=== PATIENT | female | born 1980 | race African-American/Black ===

== ENCOUNTER 2021-10-08 14:59 | Inpatient (IN) | payer BC, MEDICAID ==
[2021-10-08] MEDS ORDERED: Nitroglycerin 2% Ointment 1 INCH/1 GM Packet ONE (15:29)
[2021-10-08 15:54] LABS: #Basophils 0.1 thou/uL (0.0-0.2); #Lymphocytes 0.9 thou/uL (1.20-3.40); #Monocytes 0.2 thou/uL (0.11-0.59); #Neutrophils 7.4 thou/uL (1.40-6.50); %Basophils 0.8 % (0.0-1.0); %Eosinophils 0.2 % (0.0-10.0); %Lymphocytes 10.2 % (21.0-51.0); %Monocytes 2.2 % (0.0-10.0); %Neutrophils 86.6 % (42.0-75.0); Hemoglobin 15.1 g/dL (12.0-16.0); Mean Corpuscular Hemoglobin 28.3 pg (27.0-31.0); Mean Corpuscular Volume 88.3 fL (78.0-98.0); Red Blood Cell (RBC) Count 5.35 mill/uL (4.20-5.40); White Blood Cell (WBC) Count 8.6 thou/uL (4.8-10.8)
[2021-10-08 16:17] LABS: Anisocytosis SLIGHT = 6-15 cells (100X) (0-5/hpf); MDiff Complete? YES; Mean Platelet Volume 8.3 fL (7.4-10.4); Platelet Count 248 thou/uL (130-400); Platelet Morphology Comment Appears Adequate; Polychromasia SLIGHT = 2-3 cells (100X) (0-2/hpf)
[2021-10-08] MEDS ORDERED: Aspirin Chewable 81 MG TAB ONE (16:23)
[2021-10-08] MEDS ORDERED: niCARdipine 25 MG/10 ML VIAL ONE (16:54)
[2021-10-08] MEDS ORDERED: Ondansetron ODT 4 MG TAB PO PRN (17:21)
[2021-10-08] MEDS ORDERED: Ondansetron PF 4 MG/2 ML Vial IVP PRN (17:21)
[2021-10-08] MEDS ORDERED: Electrolyte Replacement Protocol 1 EACH IVPB ONE (17:27)
[2021-10-08 17:30] LABS: ALT (SGPT) 20 U/L (8-55); AST (SGOT) 38 U/L (5-34); Albumin 4.9 g/dL (3.5-5.0); Alkaline Phosphatase 52 U/L (40-110); Anion Gap 15 mmol/L (10-20); BUN (Urea Nitrogen) 12 mg/dL (7.0-18.7); Bilirubin, Total 0.7 mg/dL (0.2-1.2); Calc. Creatinine Clearance 0 mL/min (70-130); Calcium 10.1 mg/dL (7.8-10.44); Carbon Dioxide 23 mmol/L (22-29); Chloride 103 mmol/L (98-107); Globulin 4.6 g/dL (2.4-3.5); Glucose 89 mg/dL (70-105); Potassium 3.9 mmol/L (3.5-5.1); Protein, Total 9.5 g/dL (6.0-8.3); Sodium 137 mmol/L (136-145)
[2021-10-08] MEDS ORDERED: niCARdipine 25 MG in Sodium Chloride 0.9% 250 ML 250 ML IVPB SCH (17:30)
[2021-10-08] MEDS ORDERED: Electrolyte Replacement Protocol FS PRN (18:15)
[2021-10-08 18:38] LABS: BHCG - Serum Negative (NEGATIVE); Pregs Control Background? CLEAR/WHITE (CLR/WHITE); Pregs Control Bar Appear? YES (CONTROL BAR)
[2021-10-08 18:47] LABS: Troponin I 0.013 ng/mL (< 0.028)
[2021-10-08] MEDS: Atorvastatin Calcium 40 MG TAB PO SCH (20:47)
[2021-10-08] MEDS: Acetaminophen 325 MG TAB PO PRN (20:47)
[2021-10-09] MEDS: Acetaminophen 325 MG TAB PO PRN ×2 (01:10→18:41)
[2021-10-09 03:50] LABS: #Basophils 0.1 thou/uL (0.0-0.2); #Lymphocytes 0.9 thou/uL (1.20-3.40); #Monocytes 0.8 thou/uL (0.11-0.59); #Neutrophils 5.3 thou/uL (1.40-6.50); %Basophils 1.1 % (0.0-1.0); %Eosinophils 0.1 % (0.0-10.0); %Lymphocytes 12.2 % (21.0-51.0); %Monocytes 10.9 % (0.0-10.0); %Neutrophils 75.6 % (42.0-75.0); Hemoglobin 13.7 g/dL (12.0-16.0); Mean Corpuscular HGB CONC 32.7 g/dL (32.0-36.0); Mean Corpuscular Hemoglobin 28.5 pg (27.0-31.0); Mean Corpuscular Volume 87.2 fL (78.0-98.0); Mean Platelet Volume 8.3 fL (7.4-10.4); Platelet Count 225 thou/uL (130-400); RBC Distribution Width 15.7 % (11.5-14.5); Red Blood Cell (RBC) Count 4.79 mill/uL (4.20-5.40)
[2021-10-09 04:08] LABS: ALT (SGPT) 17 U/L (8-55); AST (SGOT) 16 U/L (5-34); Albumin 4.2 g/dL (3.5-5.0); Alkaline Phosphatase 51 U/L (40-110); Anion Gap 13 mmol/L (10-20); BUN (Urea Nitrogen) 16 mg/dL (7.0-18.7); Bilirubin, Total 0.6 mg/dL (0.2-1.2); Calc. Creatinine Clearance 89 mL/min (70-130); Carbon Dioxide 22 mmol/L (22-29); Chloride 105 mmol/L (98-107); Globulin 3.6 g/dL (2.4-3.5); Glucose 91 mg/dL (70-105); Potassium 3.5 mmol/L (3.5-5.1); Protein, Total 7.8 g/dL (6.0-8.3); Sodium 136 mmol/L (136-145)
[2021-10-09] MEDS ORDERED: Potassium Chloride 20 MEQ TAB PO SCH (06:30)
[2021-10-09] MEDS: Aspirin 81 mg Enteric Coated Tablet PO SCH (08:00)
[2021-10-09] MEDS ORDERED: Acetaminophen 500 MG TAB PO SCH (08:45)
[2021-10-09] MEDS ORDERED: Carvedilol 6.25 MG TAB PO SCH ×2 (09:00→10:45)
[2021-10-09] MEDS ORDERED: hydrALAZINE 10 MG TAB PO SCH ×2 (09:00→10:45)
[2021-10-09] MEDS: Amlodipine 10 MG TAB PO SCH (09:13)
[2021-10-09 09:25] VITALS: BMI 28.7
[2021-10-09] MEDS ORDERED: niCARdipine 25 MG in Sodium Chloride 0.9% 250 ML 250 ML IVPB SCH (11:30)
[2021-10-09] MEDS: Carvedilol 25 MG TAB PO SCH (16:39)
[2021-10-09] MEDS: hydrALAZINE 25 MG TAB PO SCH (20:22)
[2021-10-09] MEDS: Atorvastatin Calcium 40 MG TAB PO SCH (20:22)
[2021-10-10 04:08] LABS: ALT (SGPT) 17 U/L (8-55); AST (SGOT) 17 U/L (5-34); Albumin 3.9 g/dL (3.5-5.0); Alkaline Phosphatase 47 U/L (40-110); Anion Gap 12 mmol/L (10-20); BUN (Urea Nitrogen) 19 mg/dL (7.0-18.7); Bilirubin, Total 0.4 mg/dL (0.2-1.2); Calc. Creatinine Clearance 87 mL/min (70-130); Calcium 9.5 mg/dL (7.8-10.44); Carbon Dioxide 20 mmol/L (22-29); Chloride 105 mmol/L (98-107); Globulin 3.4 g/dL (2.4-3.5); Glucose 88 mg/dL (70-105); Protein, Total 7.3 g/dL (6.0-8.3); Sodium 133 mmol/L (136-145)
[2021-10-10 05:04] LABS: Band 9 % (5-11); Hemoglobin 14.5 g/dL (12.0-16.0); Lymphocytes 33 % (21-51); MDiff Complete? YES; Mean Corpuscular HGB CONC 32.2 g/dL (32.0-36.0); Mean Corpuscular Hemoglobin 28.3 pg (27.0-31.0); Mean Corpuscular Volume 87.9 fL (78.0-98.0); Mean Platelet Volume 8.8 fL (7.4-10.4); Monocytes 12 % (0-10); Neutrophil 46 % (42-75); Platelet Count 200 thou/uL (130-400); RBC Distribution Width 15.8 % (11.5-14.5); Red Blood Cell (RBC) Count 5.12 mill/uL (4.20-5.40); White Blood Cell (WBC) Count 5.2 thou/uL (4.8-10.8)
[2021-10-10] MEDS: hydrALAZINE 25 MG TAB PO SCH ×3 (08:08→21:27)
[2021-10-10] MEDS: Carvedilol 25 MG TAB PO SCH ×2 (08:08→16:19)
[2021-10-10] MEDS: hydrALAZINE 20 MG/ML VIAL SLOW IVP PRN ×2 (08:09→14:33)
[2021-10-10] MEDS: Amlodipine 10 MG TAB PO SCH (08:09)
[2021-10-10] MEDS: Aspirin 81 mg Enteric Coated Tablet PO SCH (08:09)
[2021-10-10] MEDS ORDERED: hydrALAZINE 25 MG TAB PO SCH (11:00)
[2021-10-10] MEDS: Acetaminophen 325 MG TAB PO PRN (18:01)
[2021-10-10] MEDS: Atorvastatin Calcium 40 MG TAB PO SCH (21:27)
[2021-10-11] MEDS ORDERED: hydrALAZINE 25 MG TAB PO SCH (02:52)
[2021-10-11 03:59] LABS: ALT (SGPT) 19 U/L (8-55); AST (SGOT) 21 U/L (5-34); Albumin 3.8 g/dL (3.5-5.0); Alkaline Phosphatase 45 U/L (40-110); Anion Gap 14 mmol/L (10-20); BUN (Urea Nitrogen) 19 mg/dL (7.0-18.7); Bilirubin, Total 0.3 mg/dL (0.2-1.2); Calc. Creatinine Clearance 92 mL/min (70-130); Calcium 9.6 mg/dL (7.8-10.44); Carbon Dioxide 19 mmol/L (22-29); Chloride 104 mmol/L (98-107); Globulin 3.5 g/dL (2.4-3.5); Glucose 85 mg/dL (70-105); Potassium 3.7 mmol/L (3.5-5.1); Protein, Total 7.3 g/dL (6.0-8.3); Sodium 133 mmol/L (136-145)
[2021-10-11] MEDS: hydrALAZINE 20 MG/ML VIAL SLOW IVP PRN (06:30)
[2021-10-11] MEDS: Aspirin 81 mg Enteric Coated Tablet PO SCH (08:34)
[2021-10-11] MEDS: hydrALAZINE 25 MG TAB PO SCH ×3 (08:34→20:22)
[2021-10-11] MEDS: Carvedilol 25 MG TAB PO SCH ×2 (08:35→16:20)
[2021-10-11] MEDS: Acetaminophen 325 MG TAB PO PRN (08:38)
[2021-10-11] MEDS ORDERED: NIFEdipine XL 60 MG TAB PO SCH (09:00)
[2021-10-11] MEDS ORDERED: Spironolactone 25 MG TAB PO SCH ×2 (11:00→21:00)
[2021-10-11] MEDS ORDERED: Docusate 100 MG CAP PO PRN (15:08)
[2021-10-11] MEDS: Atorvastatin Calcium 40 MG TAB PO SCH (20:22)
[2021-10-12 03:15] VITALS: BP 121/74; TEMP 98.2
[2021-10-12 05:56] LABS: Anion Gap 13 mmol/L (10-20); BUN (Urea Nitrogen) 20 mg/dL (7.0-18.7); Calc. Creatinine Clearance 113 mL/min (70-130); Calcium 9.6 mg/dL (7.8-10.44); Carbon Dioxide 20 mmol/L (22-29); Chloride 105 mmol/L (98-107); Glucose 85 mg/dL (70-105); Potassium 3.8 mmol/L (3.5-5.1); Sodium 134 mmol/L (136-145)
[2021-10-12] MEDS ORDERED: Spironolactone 25 MG TAB PO SCH (08:00)
[2021-10-12] MEDS ORDERED: NIFEdipine XL 90 MG TAB PO SCH (09:00)
[2021-10-12] MEDS ORDERED: NIFEdipine XL 60 MG TAB PO SCH (09:00)
[2021-10-12] MEDS: Carvedilol 25 MG TAB PO SCH (09:18)
[2021-10-12] MEDS: Aspirin 81 mg Enteric Coated Tablet PO SCH (09:18)
[2021-10-12] MEDS: hydrALAZINE 25 MG TAB PO SCH ×2 (09:19→14:58)
== END 2021-10-12 15:10 | disposition home or self-care (01) | DRG 291 ==
LOC: ERS 14:59 → CCU 16:31 → 2NO 10-11 23:40
PROVIDERS: ADMIT Student in an Organized Health Care Education/Training Program; ATTEND Student in an Organized Health Care Education/Training Program
DX: I11.0 Hypertensive heart disease with heart failure (principal); I50.43 Acute on chronic combined systolic (congestive) and diastolic (congestive) heart failure; I16.1 Hypertensive emergency; F41.9 Anxiety disorder, unspecified; I45.81 Long QT syndrome; E78.5 Hyperlipidemia, unspecified; J45.909 Unspecified asthma, uncomplicated; F32.A Depression, unspecified; F12.10 Cannabis abuse, uncomplicated; Z98.51 Tubal ligation status; Z80.1 Family history of malignant neoplasm of trachea, bronchus and lung; Z82.49 Family history of ischemic heart disease and other diseases of the circulatory system; Z91.14 Patient's other noncompliance with medication regimen; Z88.2 Allergy status to sulfonamides; Z88.8 Allergy status to other drugs, medicaments and biological substances; Z79.82 Long term (current) use of aspirin; Z79.899 Other long term (current) drug therapy
CPT/HCPCS: 36415; 80048; 80053; 83880; 84484; 84703; 85025; 93005; 93306; 96365; J0360; J7050